=== PATIENT | male | born 1955 | race African-American/Black ===

== ENCOUNTER → 2016-12-03 | Outpatient (CLI) | payer BC ==
--- NOTE | 2016-12-03 11:49 | US ---
EXAMINATION TYPE: US carotid duplex BILAT DATE OF EXAM: 12/03/2016 11:29 AM COMPARISON: NONE CLINICAL HISTORY: syncope. EXAM MEASUREMENTS: RIGHT: Peak Systolic Velocity (PSV) cm/sec ----- Right CCA: 76.4 ----- Right ICA: 64.7 ----- Right ECA: 57.9 ICA/CCA ratio: 0.8 RIGHT: End Diastole cm/sec ----- Right CCA: 16.4 ----- Right ICA: 21.4 ----- Right ECA: 8.2 LEFT: Peak Systolic Velocity (PSV) cm/sec ----- Left CCA: 63.8 ----- Left ICA: 51.9 ----- Left ECA: 57.5 ICA/CCA ratio: 0.8 LEFT: End Diastole cm/sec ----- Left CCA: 13.8 ----- Left ICA: 19.2 ----- Left ECA: 6.1 VERTEBRALS (direction of flow): Right Vertebral: Antegrade Left Vertebral: Antegrade TECHNOLOGIST IMPRESSION: No elevated velocities IMPRESSION: I DO NOT SEE EVIDENCE OF A HEMODYNAMICALLY SIGNIFICANT STENOSIS IN EITHER CAROTID SYSTEM. Criteria for Assigning % of Stenosis / Diameter reduction (Estimation based on the indirect measurements of the internal carotid artery velocities (ICA PSV). 1. Normal (no stenosis)=ICA PSV < 125 cm/s: ratio < 2.0: ICA EDV<40 cm/s. 2. Less than 50% stenosis=ICA PSV < 125 cm/s: ratio < 2.0: ICA EDV<40 cm/s. 3. 50 to 69% stenosis=ICA PSV of 125 to 230 cm/s: ration 2.0 ? 4.0: ICA EDV 40-100 cm/s. 4. Greater than 70% stenosis to near occlusion= ICA PSV > 230 cm/s: ratio > 4.0: ICA EDV > 100 cm/s. 5. Near occlusion= ICA PSV velocities may be low or undetectable: variable ratio and ICA EDV. 6. Total occlusion=unable to detect flow.
--- NOTE | 2016-12-03 12:36 | EST ---
DATE OF SERVICE: 12/03/2016 AGE: 61Y SEX: M HT: 66" WT: 174 lbs. Protocol Rodriguez: X Other: Stage: III Dur. of Exercise: 6:45 *Heart Rate Blood Pressure *Rest: 86 Rest: 178/98 * *Max. Achieved: 138 Maximum BP: 217/101 85% PMHR: 135 100% PMHR: 159 *METS: 7 to 8 INDICATIONS: Chest pain. MEDICATIONS: Metoprolol, amlodipine. CLINICAL INFORMATION: Patient is known to have hypertension, screening for ischemic heart disease and is also a smoker, 2 cigars a day for 20 years. Resting ECG shows sinus rhythm, rate of 86 beats per minute. MO interval 0.16, QRS 0.08, poor R wave progression in anteroseptal leads; cannot exclude anteroseptal ND, age unknown. Utilizing a standard Rodriguez protocol, a symptom limited treadmill test was performed. Patient exercised for total of 6 minutes and 45 seconds, attained a peak heart rate of 138 beats per minute, which is approximately 87% predicted maximum heart rate without any chest pain or pressure or ST segment deviations indicative of ischemia. Patient's has below average level of cardiopulmonary fitness as indicated by VO2 max and Mets. Patient attained peak metabolic activity equivalent to 7 to 8 METs. Patient did not report any symptoms throughout the study. IMPRESSION: 1. Baseline rhythm is sinus with poor R wave progression in anteroseptal leads, cannot exclude anteroseptal myocardial infarction, age unknown. 2. Negative exercise treadmill test at 87% predicted maximum heart rate. 3. Patient did not report any symptoms throughout the study. 4. Patient has below average level of cardiopulmonary fitness as indicated by VO2 max and METs. Patient attained a peak metabolic activity equivalent to 7 to 8 METs.
--- NOTE | 2016-12-03 12:46 | ECHOF ---
Referral Reason:[id number] htn R07.89 chest pain MEASUREMENTS -------- HEIGHT: 170.2 cm WEIGHT: 78.9 kg BP: RVIDd: 2.4 cm (< 3.3) IVSd: 1.4 cm (0.6 - 1.1) LVIDd: 4.5 cm (3.9 - 5.3) LVPWd: 1.3 cm (0.6 - 1.1) IVSs: 1.4 cm LVIDs: 4.0 cm LVPWs: 1.3 cm LA Diam: 3.5 cm (2.7 - 3.8) LAESV Index (A-L): 24.69 ml/m Ao Diam: 3.1 cm (2.0 - 3.7) AV Cusp: 1.7 cm (1.5 - 2.6) LA Diam: 3.8 cm (2.7 - 3.8) MV EXCURSION: 16.399 mm (> 18.000) MV EF SLOPE: 107 mm/s (70 - 150) EPSS: 0.9 cm MV E Obed: 0.71 m/s MV DecT: 197 ms MV A Obed: 0.87 m/s MV E/A Ratio: 0.81 AR PHT: 589 ms RAP: 5.00 mmHg RVSP: 10.90 mmHg FINDINGS -------- Sinus rhythm. This was a technically good study. There is moderate concentric left ventricular hypertrophy. Overall left ventricular systolic function is low-normal with, an EF between 50 - 55 %. Septal Basal Hypokinesis. The right ventricle is normal in size. LA is midly dilated 29-33ml/m2. The right atrial size is normal. There is mild aortic valve sclerosis. Trace to mild aortic regurgitation. Mild mitral regurgitation is present. Mild tricuspid regurgitation present. There is no evidence of pulmonary hypertension. The right ventricular systolic pressure, as measured by Doppler, is 10.90mmHg. There is no pulmonic regurgitation present. The aortic root size is normal. There is no pericardial effusion. CONCLUSIONS -------- 1. There is moderate concentric left ventricular hypertrophy. 2. Overall left ventricular systolic function is low-normal with, an EF between 50 - 55 %. 3. Septal Basal Hypokinesis. 4. There is mild aortic valve sclerosis. 5. Trace to mild aortic regurgitation. 6. Mild mitral regurgitation is present. 7. Mild tricuspid regurgitation present. 8. There is no evidence of pulmonary hypertension. 9. The right ventricular systolic pressure, as measured by Doppler, is 10.90mmHg. BROOM MAKER: Jenise Mazariegos RDCS
== END | disposition home or self-care (01) ==
LOC: RADNMMAIN 10:16
PROVIDERS: ATTEND Family Medicine
DX: I10 Essential (primary) hypertension (principal)
CPT/HCPCS: 93017; 93306; 93880

== ENCOUNTER → 2017-01-01 | Outpatient (CLI) | payer BC ==
[2017-01-01 16:47] LABS: Anion Gap 13 mmol/L; Blood Urea Nitrogen 21 mg/dL (9-20); Calcium 9.6 mg/dL (8.4-10.2); Carbon Dioxide 27 mmol/L (22-30); Chloride 100 mmol/L (98-107); Glucose 96 mg/dL (74-99); Non-African American GFR(MDRD) >60 (>60 ml/min/1.73 sqM); Potassium 3.7 mmol/L (3.5-5.1); Sodium 140 mmol/L (137-145)
== END | disposition home or self-care (01) ==
LOC: LABWHC1 16:15
PROVIDERS: ATTEND Internal Medicine Cardiovascular Disease
DX: I10 Essential (primary) hypertension (principal)
CPT/HCPCS: 36415; 80048

== ENCOUNTER 2025-06-19 09:24 | Day surgery (SDC) | payer MEDICARE, BC ==
[2025-06-19] MEDS: IV FLUID CONTINUATION 1,000 ML IV ONE (10:24)
[2025-06-19 10:38] VITALS: TEMP 97.7
[2025-06-19] MEDS: LACTATED RINGERS 1,000 ML IV SCH (11:11)
[2025-06-19] MEDS ORDERED: PROPOFOL 10 MG/ML 20 ML VIAL IV ONE (11:12)
--- NOTE | 2025-06-19 11:33 | P.PCN ---
Date of Procedure: 06/19/25 Preoperative Diagnosis: Screening Postoperative Diagnosis: Ascending colon polyp Hepatic flexure polyp Descending colon Procedure(s) Performed: Colonoscopy with hot snare polypectomy Anesthesia: MAC Surgeon: Arline Pizarro Pathology: other (Ascending colon polyp, hepatic flexure polyp, descending colon polyp) Condition: stable Disposition: same day Indications for Procedure: 69-year-old male presents today for screening colonoscopy. Last colonoscopy was over 8 years ago. Denies any blood in his stool. No family history of colon cancer. Risks, benefits and alternatives provided to the patient. All questions answered prior to attending the endoscopy suite. Operative Findings: Ascending colon polyp, descending colon polyp, hepatic flexure Description of Procedure: The patient was brought to the endoscopy suite and placed in left lateral d ecubitus position and adequate sedation was achieved using conscious sedation. Digital rectal exam was performed and mild internal hemorrhoids were palpated. An endoscope was then placed in the rectum and advanced to the cecum as identified by landmarks including the appendiceal orifice and the ileocecal valve. The prep was good. The colonoscope was then slowly withdrawn, examining for any mucosal abnormalities. The cecum, ascending, transverse, descending and sigmoid colon were visualized adequately. There were no large neoplastic lesions noted throughout the colon. Polyps were noted in the ascending, descending and hepatic flexure. These were removed with hot snare polypectomy. Hemostasis was maintained. Retroflexion was performed in the rectum and internal hemorrhoids. Excess air was removed, the colonoscope withdrawn and the procedure terminated. The patient was then transferred to the recovery unit in stable condition. Repeat colonoscopy should be performed in 3 years.
[2025-06-19 12:01] VITALS: BP 119/80; PULSE 71; RESP 16
== END 2025-06-19 12:45 | disposition home or self-care (01) ==
LOC: ORWHC2ENDO 09:24
PROVIDERS: ATTEND Surgery
DX: Z12.11 Encounter for screening for malignant neoplasm of colon (principal); D12.2 Benign neoplasm of ascending colon; D12.3 Benign neoplasm of transverse colon; D12.4 Benign neoplasm of descending colon; K64.8 Other hemorrhoids; I10 Essential (primary) hypertension; Z79.899 Other long term (current) drug therapy; Z85.46 Personal history of malignant neoplasm of prostate; Z92.3 Personal history of irradiation
CPT/HCPCS: 88305; 45385; J2704; 45380